=== PATIENT | female | born 1975 | race Caucasian/White ===

== ENCOUNTER 2023-05-13 15:14 | Outpatient (AMB) | payer BC, SELFPAY ==
--- NOTE | 2023-05-13 15:26 | AM.OFFWIN_ITS ---
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 She has a primary complaint of lower back pain over the past several days. Patient denies numbness or tingling. Does have a history of lower back pain. Review of Systems Const Details: Constitutional : No Weight loss, No Fever, No Chills, No Fatigue, No Malaise Cardiovascular : No Chest Pain, No SOB, No Dyspnea on Exertion, No Orthopnea, No Edema, No Palpitations Respiratory : No Cough, No Sputum, No Wheezing Gastrointestinal : No Nausea, No Vomiting, No Diarrhea, No Constipation, No abdominal Pain, No Hematochezia, No Melena Genitourinary : No Dysuria, No Urinary Frequency, No Hematuria, Musculoskeletal : + lower back pain. Skin : No Skin Lesions, No rash Neuro : No Weakness, No Numbness, No Dizziness, No Headache Psych : No Anxiety/Panic, No Depression Heme/Lymph: No Bruising, No Bleeding,No Lymphadenopathy Endocrine : No Polyuria, No Polydipsia All other systems reviewed and are negative Physical Exam Vital Signs: Last Vital Signs Temp 98.0 F 05/13/23 15:30 Pulse 82 05/13/23 15:30 BP 122/74 05/13/23 15:30 Pulse Ox 97 05/13/23 15:30 Oxygen Delivery Method Room Air 05/13/23 15:30 Vital signs reviewed stable Results AMB Urinalysis, Automated UA Leukoctes 0 Shen/uL Last Edit by Krysten Luna CMA on 05/13/23 15:43 UA Nitrite Negative Last Edit by Krysten Luna CMA on 05/13/23 15:43 UA Urobilinogen 0.2 mg/dL Last Edit by Krysten Luna CMA on 05/13/23 15:43 UA Protein 0 mg/dL Last Edit by Krysten Luna CMA on 05/13/23 15:43 UA pH 6.0 Last Edit by Krysten Luna CMA on 05/13/23 15:43 UA Blood 0 Marshall/uL Last Edit by Krysten Luna CMA on 05/13/23 15:43 UA Specific [place] 1.010 Last Edit by Krysten Luna CMA on 05/13/23 15:43 UA Ketone Negative Last Edit by Krysten Luna CMA on 05/13/23 15:43 UA Bilirubin 0 mg/dL Last Edit by Krysten Luna CMA on 05/13/23 15:43 UA Glucose 0 mg/dL Last Edit by Krysten Luna CMA on 05/13/23 15:43 Results Reviewed Results Reviewed: Laboratory Last Values Urine pH (Auto) 6.0 05/13/23 15:40 Specific [place] (Auto) 1.010 05/13/23 15:40 Urine Protein (Auto) 0 mg/dL 05/13/23 15:40 Glucose (UA)(Auto) 0 mg/dL 05/13/23 15:40 Urine Ketones (Auto) Negative 05/13/23 15:40 Urine Blood (Auto) 0 Marshall/uL 05/13/23 15:40 Urine Nitrite (Auto) Negative 05/13/23 15:40 Urine Bilirubin (Auto) 0 mg/dL 05/13/23 15:40 Urine Urobilinogen (Auto) 0.2 mg/dL 05/13/23 15:40 Leukocyte Esterase (Auto) 0 Shen/uL 05/13/23 15:40 Assessment & Plan Assessment & Plan (1) Lower back pain: Comment: Will obtain lumbar x-ray in office. Will give meloxicam and cyclobenzaprine to be taken as prescribed. Patient has been educated on the side effects of these medications. Code(s): M54.50 - Low back pain, unspecified Qualifiers: Chronicity: unspecified Back pain laterality: midline Sciatica presence: without sciatica Qualified Code(s): M54.50 - Low back pain, unspecified Plan: Take your medications as prescribed. If you were prescribed antibiotics today, it is important that you take your medication to their entirety, do not skip any doses, do not finish them early. Follow-up with your primary care provider this week. Return to the emergency department with new or worsening symptoms. Such as fevers, chills, chest pain, shortness of breath, nausea, vomiting, dizziness, headache, vision changes, lethargy In case of emergency call 911 Plan Follow-up PCP Orders: Orders AMB Urinalysis Automated Today Z13.9 - Encounter for screening, unspecified XR lumbar spine 2-3V Today M54.50 - Low back pain, unspecified UA CC w/rflx Micro + Cult Today M54.50 - Low back pain, unspecified Medications: New cyclobenzaprine 5 mg PO BEDTIME PRN 7 tabs 0RF muscle spasm meloxicam Do not combine with other NSAIDs 15 mg PO DAILY 14 tabs 0RF Coding Level of Care Code Est Pt Level 3 (13342) Diagnoses Midline low back pain without sciatica, unspecified chronicity M54.50 Chronicity: unspecified Back pain laterality: midline Sciatica presence: without sciatica
[2023-05-13 15:30] VITALS: BP 122/74; PULSE 82; TEMP 36.7; O2SAT 97
== END 2023-05-13 16:49 | disposition home or self-care (01) ==
PROVIDERS: Visit Provider Nurse Practitioner Primary Care
DX: M54.50 Low back pain, unspecified (principal)
CPT/HCPCS: 81003; 99214

== ENCOUNTER 2023-05-13 15:57 | Outpatient (REF) | payer BC, SELFPAY ==
--- NOTE | ~2023-05-13 | XR_ITS ---
EXAMINATION: XR LUMBOSACRAL SPINE CLINICAL INFORMATION: Low back pain COMPARISON: None available. TECHNIQUE: Three views of the lumbosacral spine. FINDINGS: Bone alignment is normal. No fracture or dislocation. Degenerative disc disease at L5-S1. Lower lumbar spine facet arthritis. IUD in the pelvis. XR/XR lumbar spine 2-3V IMPRESSION: Degenerative disc disease at L5-S1 and lower lumbar spine facet arthritis.
[2023-05-14 11:39] LABS: Appearance Urine Clear; Color Urine Yellow; Glucose Urine UA Negative (Negative); Leukocyte Esterase Urine Trace (Negative); Nitrite Urine Negative (Negative); PH 6.5 (5.0-9.0); UMIC TRIGGER UACC YES; Urine Blood Negative (Negative); Urine Ketones Negative (Negative); Urine Protein Negative (Neg-Trace)
[2023-05-14 11:43] LABS: Bacteria Urine None Seen (None Seen); Hyaline Casts Urine 0-2 /LPF (0-2); RBC Urine 0-2 /HPF (0-2); Squamous Epithelial Cell Urine 0-2 /HPF (0-2); WBC Urine 0-5 /HPF (0-5)
== END 2023-05-13 15:58 | disposition home or self-care (01) ==
LOC: HO.HMGCX 15:57
PROVIDERS: Visit Provider Nurse Practitioner Primary Care
DX: M54.50 Low back pain, unspecified (principal)
CPT/HCPCS: 72100; 81001

== ENCOUNTER 2024-12-28 09:43 | Outpatient (AMB) | payer BC, SELFPAY ==
--- NOTE | 2024-12-28 09:46 | AM.OFFWIN_ITS ---
Intake Vital Signs 12/28/24 09:50 Height 5 ft 1 in Weight 149 lb BMI 28.2 BP 132/78 Blood Pressure Location Lt brachial Position Sitting Pulse 85 Pulse Source Pulse Oximeter Temp 97.7 F Temp Source Oral Pulse Oximetry (%) 97 Oxygen Delivery Method Room Air Intake Visit Reasons: EP-rt shoulder pain Intake Note: Patient presents with c/o right shoulder pain x1 month but has become constant pain the past week - unknown injury Allergies No Known Allergies Allergy (Verified 12/28/24 09:51) Do you need a note to return to daycare/school/sports/work: Yes HPI HPI Comments History of Present Illness Details History of Present Illness - The patient is a 49-year-old female pr esenting with right shoulder pain. - The shoulder pain began approximately one month ago without any specific injury. - The pain has been persistent for the p ast week, not alleviated by ibuprofen. - The pain worsens with activities such as driving and writing, and is present in the upper back, side of her shoulder, and front of her shoulder. - The patient reports numbness in the ar m and fingers when pressure is applied to the anterior shoulder area. - The patient has been using heat for re lief, which provides minimal help. Review of Systems - Musculoskeletal: Reports persistent sh oulder pain for one month, worsens with activity, and associated with numbness in the arm and fingers. - Neurological: Denies any other neurolo gical symptoms apart from numbness in the arm and fingers. All systems reviewed and are unremarkable except as noted in HPI Physical Exam General: Cooperative, healthy appearing, comfortable, no acute distress and well developed Orientation: Patient oriented x3 Limitations: Limited range of motion in the right shoulder due to pain Head: Normal to inspection Ears: Hearing grossly normal bilaterally Nose: Normal External nose present Face and sinus: Normal facial exam Eyes: Appearance normal, both eyes and all related structures Neck: Normal visual inspection and Yes full ROM Respiratory: Normal respiratory effort and able to speak in complete sentences. Skin: No rashes or lesions noted Neuro: Patient oriented x3 Extremities: Limited range of motion in the right shoulder due to pain, can abduct to 110 degrees, neg empty can, TTP in right trapezius, lateral shoulder, anterior shoulder, right rhomboids. Full ROM right elbow, no skin changes on right arm, no ecchymosis. Physical Exam Vital Signs: Last Vital Signs Temp 97.7 F 12/28/24 09:50 Pulse 85 12/28/24 09:50 BP 132/78 12/28/24 09:50 Pulse Ox 97 12/28/24 09:50 Oxygen Delivery Method Room Air 12/28/24 09:50 BMI result Body Mass Index 28.2 Assessment & Plan Assessment & Plan (1) Right shoulder pain: Code(s): M25.511 - Pain in right shoulder Qualifiers: Chronicity: acute Qualified Code(s): M25.511 - Pain in right shoulder Plan: Patient was informed and verbally consented to the use of an ambient scribe for clinic note documentation during this visit. Right Shoulder Pain - Recommend use of ice and topical anti-inflammatory agents such as Voltaren gel for inflammation. - Prescribed diclofenac for pain management, considering no kidney issues. - Advised use of a sling for shoulder rest, with caution to avoid frozen shoulder, twice daily ROM exercises and wean off sling over 2-3 weeks. - Prescribed cyclobenzaprine for muscle relaxation, pain starts in right rhomboid area. - Referral to construction specialist for further evaluation if symptoms persist. - The patient is possibly experiencing menopausal joint pain due to decreased estrogen levels but should rule out other causes first. - No indication for XR as no injury. Orders: Referrals Orthopedics Referral M25.511 - Pain in right shoulder Medications: New diclofenac sodium 50 mg PO Q12H PRN 20 tabs 0RF pain cyclobenzaprine 5 mg PO Q8H PRN 20 tabs 0RF Muscle Spasm Discontinued meloxicam Do not combine with other NSAIDs Discontinued Reason: Patient Completed Course 15 mg PO DAILY 14 tabs 0RF Coding Level of Care Code New Pt Level 3 (27264) Diagnoses Acute pain of right shoulder M25.511 Chronicity: acute
[2024-12-28 09:50] VITALS: BP 132/78; PULSE 85; TEMP 36.5; O2SAT 97; BMI 28.2
--- OUTSIDE RECORDS SUMMARY | 2024-12-28 11:13 | XMS_ITS | Clinical Summary ---
Author Organization [facility] Address [address] [place] [address] Care Team Providers Care Magazine Worker Name Role Phone Unavailable Primary Care Provider Unavailabl e Social History Tobacco Use Types Packs/Day Years Used Date Smoking Tobacco: Never Assessed Comments Unknown Sex and Gender Information Value Date Recorded Sex Assigned at Not on file Legal Sex Female 12:22 AM EST Gender Identity Not on file Sexual Orientation Not on file Plan of Treatment Health Maintenance Due Date Last Done Comments Breast Cancer Screening 1974 DTaP,Tdap,and Td Vaccines (1 - Tdap) 1993 Hepatitis B Vaccines (1 of 3 - 19+ 3-dose series) 1993 Cervical Cancer Screening: P ap Smear 11/29/1995 Depression Screening 03/03/2024 COVID-19 Vaccine (1 - 2023-2 5 season) 2024 Influenza Vaccine (#1) 2024 Pneumococcal Vaccine: 50+ Ye ars (1 of 1 - PCV) 2024 Zoster Vaccines (1 of 2) 2024 RSV Immunization Adult Patie nts (1 - 1-dose 75+ series) 2049 HIB Vaccines Aged Out No longer eligi ble based on patient's age to complete this topic HPV Vaccines Aged Out No longer eligi ble based on patient's age to complete this topic Hepatitis A Vaccines Aged Out No long er eligible based on patient's age to complete this topic IPV Vaccines Aged Out No longer eligi ble based on patient's age to complete this topic MMR Vaccines Aged Out No longer eligi ble based on patient's age to complete this topic Meningococcal ACWY Vaccine Aged Out N o longer eligible based on patient's age to complete this topic Meningococcal B Vaccine Aged Out No l onger eligible based on patient's age to complete this topic RSV Immunization Patients Un chelsi 20 months Aged Out No longer eligible b ased on patient's age to complete this topic Varicella Vaccines Aged Out No longer eligible based on patient's age to complete this topic
== END 2024-12-28 10:27 | disposition home or self-care (01) ==
PROVIDERS: Visit Provider Physician Assistant
DX: M25.511 Pain in right shoulder (principal)